=== PATIENT | female | born 1960 | race Hispanic/Latino ===

== ENCOUNTER 2021-01-11 07:58 | Emergency (ER) | payer MEDICAID ==
[2021-01-11 08:05] VITALS: BP 147/81
--- NOTE | 2021-01-11 08:17 | Emergency Department Report ---
ED ENT HPI - General Chief complaint: Dental/Oral Stated complaint: SWOLLEN ABSCESS TOOTH PAIN Time Seen by Provider: 01/11/21 08:10 Source: patient Mode of arrival: Ambulatory Limitations: No Limitations - History of Present Illness Initial comments: Patient is a 60-year-old female presents emergency room complaints of a abscessed tooth. She states that she has had right lower dental pain for 2 days. She states that last night she noticed the right lower facial swelling. She states that she has not seen a dentist in approximately a year. She denies any fever, nausea, vomiting, diarrhea, difficulty swallowing, difficulty breathing. She is able to tolerate p.o. intake. denies pMHx. No allergies medications. - Related Data Previous Rx's Medication Instructions Recorded Last Taken Type Aspirin EC [Halfprin EC] 81 mg PO QDAY #30 tablet 12/17/19 Unknown Rx AtorvaSTATin [Lipitor] 40 mg PO QHS #30 tablet 12/17/19 Unknown Rx amLODIPine 5 mg PO QDAY #30 tablet 12/17/19 Unknown Rx Chlorhexidine Mouthwash [Peridex] 15 ml MM BID #1 bottle 01/11/21 Unknown Rx Clindamycin [Clindamycin CAP] 450 mg PO TID 7 Days #63 capsule 01/11/21 Unknown Rx Ibuprofen [Motrin 600 MG tab] 600 mg PO Q8H PRN #20 tablet 01/11/21 Unknown Rx Allergies Allergy/AdvReac Type Severity Reaction Status Date / Time No Known Allergies Allergy Verified 01/11/21 07:59 ED Dental HPI - General Chief complaint: Dental/Oral Stated complaint: SWOLLEN ABSCESS TOOTH PAIN Time Seen by Provider: 01/11/21 08:10 Source: patient Mode of arrival: Ambulatory Limitations: No Limitations - Related Data Previous Rx's Medication Instructions Recorded Last Taken Type Aspirin EC [Halfprin EC] 81 mg PO QDAY #30 tablet 12/17/19 Unknown Rx AtorvaSTATin [Lipitor] 40 mg PO QHS #30 tablet 12/17/19 Unknown Rx amLODIPine 5 mg PO QDAY #30 tablet 12/17/19 Unknown Rx Chlorhexidine Mouthwash [Peridex] 15 ml MM BID #1 bottle 01/11/21 Unknown Rx Clindamycin [Clindamycin CAP] 450 mg PO TID 7 Days #63 capsule 01/11/21 Unknown Rx Ibuprofen [Motrin 600 MG tab] 600 mg PO Q8H PRN #20 tablet 01/11/21 Unknown Rx Allergies Allergy/AdvReac Type Severity Reaction Status Date / Time No Known Allergies Allergy Verified 01/11/21 07:59 ED Review of Systems ROS: Stated complaint: SWOLLEN ABSCESS TOOTH PAIN Other details as noted in HPI Comment: All other systems reviewed and negative ED Past Medical Hx - Past Medical History Hx Arthritis: Yes Additional medical history: Psychiatric history: anxiety, depression - Surgical History Additional Surgical History: Leg, hip and neck surgery related to an accident - Social History Smoking Status: Never Smoker Substance Use Type: None - Medications Home Medications: Home Medications Medication Instructions Recorded Confirmed Last Taken Type Aspirin EC [Halfprin EC] 81 mg PO QDAY #30 tablet 12/17/19 Unknown Rx AtorvaSTATin [Lipitor] 40 mg PO QHS #30 tablet 12/17/19 Unknown Rx amLODIPine 5 mg PO QDAY #30 tablet 12/17/19 Unknown Rx Chlorhexidine Mouthwash [Peridex] 15 ml MM BID #1 bottle 01/11/21 Unknown Rx Clindamycin [Clindamycin CAP] 450 mg PO TID 7 Days #63 capsule 01/11/21 Unknown Rx Ibuprofen [Motrin 600 MG tab] 600 mg PO Q8H PRN #20 tablet 01/11/21 Unknown Rx ED Physical Exam - General Limitations: No Limitations General appearance: alert, in no apparent distress - Head Head exam: Present: atraumatic, normocephalic - Eye Eye exam: Present: normal appearance - ENT ENT exam: Present: normal orophraynx (no tongue elevation, no muffled voice, no submandibular edema), mucous membranes moist, other (very poor dentition, multiple dental caries/cracked/mising teeth, there are two dental carries present to the right lower back molars, there is associated induration of the adjacent gumline, there is moderate right facial edema, uvula is midline, no uvular edema or deviation, no trismus) - Respiratory Respiratory exam: Absent: respiratory distress, accessory muscle use - Neurological Exam Neurological exam: Present: alert, oriented X3 - Psychiatric Psychiatric exam: Present: normal affect, normal mood - Skin Skin exam: Present: warm, dry, intact ED Course Vital Signs 01/11/21 08:04 Temperature 98.5 F Pulse Rate 80 Respiratory 17 Rate Blood Pressure 147/81 O2 Sat by Pulse 96 Oximetry ED Medical Decision Making - Medical Decision Making Patient is a 60-year-old female presents emergency room complaints of a abscessed tooth. She states that she has had right lower dental pain for 2 days. She states that last night she noticed the right lower facial swelling. She states that she has not seen a dentist in approximately a year. She denies any fever, nausea, vomiting, diarrhea, difficulty swallowing, difficulty breathing. She is able to tolerate p.o. intake. denies pMHx. No allergies medications. Vitals are stable. On exam:very poor dentition, multiple dental caries/cracked/mising teeth, there are two dental carries present to the right lower back molars, there is associated induration of the adjacent gumline, there is moderate right facial edema, uvula is midline, no uvular edema or deviation, no trismus, no tongue elevation, no muffled voice, no submandibular edema. Examination appears consistent with dental caries and dental abscess. No signs of Ludwigs at this time, no airway compromise, no facial abscess at this time. Patient given prescription for clindamycin, chlorhexidine mouthwash, ibuprofen. Advised patient Please use medication as prescribed. Please follow-up with a dentist. It is very important that you follow-up. Return to emergency room for any new or worsening symptoms. Critical care attestation.: If time is entered above; I have spent that time in minutes in the direct care of this critically ill patient, excluding procedure time. ED Disposition Clinical Impression: Dental abscess, Dental caries, Dentalgia Disposition: DC- TO HOME OR SELFCARE Is pt being admited?: No Does the pt Need Aspirin: No Condition: Stable Instructions: Dental Abscess Additional Instructions: Please use medication as prescribed. Please follow-up with a dentist. It is very important that you follow-up. Return to emergency room for any new or worsening symptoms. Prescriptions: Clindamycin [Clindamycin CAP] 450 mg PO TID 7 Days #63 capsule Ibuprofen [Motrin 600 MG tab] 600 mg PO Q8H PRN #20 tablet PRN Reason: Pain Chlorhexidine Mouthwash [Peridex] 15 ml MM BID #1 bottle Referrals: [facility] [Outside] - 2-3 Days [facility] [Outside] - 2-3 Days Time of Disposition: 08:16 Print Language: [id number]
== END 2021-01-11 08:30 | disposition home or self-care (01) ==
LOC: ED 07:58
DX: K04.7 Periapical abscess without sinus (principal); K02.9 Dental caries, unspecified; K08.89 Other specified disorders of teeth and supporting structures; M19.91 Primary osteoarthritis, unspecified site; Z98.890 Other specified postprocedural states; Z79.1 Long term (current) use of non-steroidal anti-inflammatories (NSAID); Z79.2 Long term (current) use of antibiotics; Z79.899 Other long term (current) drug therapy
CPT/HCPCS: 99282